=== PATIENT | male | born 1965 | race Caucasian/White ===

== ENCOUNTER 2016-10-17 05:30 | Inpatient (IN) | payer BC ==
[2016-10-14 17:55] VITALS: BMI 23.4
[2016-10-17] VITALS (20 sets, daily range): BP systolic 92–124; BP diastolic 55–82; PULSE 66–79; RESP 10–23; Ht 180.3 cm; Wt 75.3 kg
[~2016-10-17] VITALS: Ht 180.3 cm; Wt 75.3 kg
[~2016-10-17 05:30] MED LIST: CEFAZOLIN 2 GM/50 ML (PMX) 50 ML IVPB ONE; LEVOTHYROXIN
[2016-10-17] MEDS ORDERED: LEVO75TA5 PO (06:32)
[2016-10-17] MEDS ORDERED: PROP10TA6 PO (06:32)
[2016-10-17] MEDS ORDERED: ONDANSETRON 4 MG INJ ONE (06:34)
[2016-10-17] MEDS ORDERED: FENTAnyl 50 MCG/ML VIAL ONE (06:34)
[2016-10-17] MEDS ORDERED: PROPOFOL 20 ML ONE (06:34)
[2016-10-17] MEDS ORDERED: SUCCINYLCHOLINE CHLORIDE 100 MG/5 ML SYG IV ONE (06:34)
[2016-10-17] MEDS ORDERED: ROCURONIUM 50 MG INJ ONE (06:34)
[2016-10-17] MEDS ORDERED: GELATIN SIZE 100 SPONGE ONE (06:40)
[2016-10-17] MEDS ORDERED: BUPIVACAINE 0.25% (MPF) 10 ML 10 ML VIAL ONE (06:41)
[2016-10-17] MEDS ORDERED: THROMBIN 5000 UNIT VIAL ONE (06:41)
[2016-10-17] MEDS ORDERED: POLYMYXIN/BACITRACIN 1L IRRIG ONE (06:41)
[2016-10-17] MEDS ORDERED: CEFAZOLIN 1 GM INJ ONE ×2 (06:43→07:00)
[2016-10-17] MEDS ORDERED: HEPARIN 1000 UNITS/ML 10 ML INJ ONE (06:44)
--- NOTE | 2016-10-17 06:45 | HPN ---
Date/Time of Note Date/Time of Note DATE: 10/17/16 TIME: 06:45 Interval H&P Admission Note Pt. seen H&P reviewed: No system changes ELENITA PULIDO MD Oct 17, 2016 06:45
[2016-10-17] MEDS ORDERED: hydrALAzine 20 MG INJ IV PRN (08:00)
[2016-10-17] MEDS ORDERED: MEPERIDINE 25 MG INJ IV PRN (08:00)
[2016-10-17] MEDS ORDERED: LABETALOL HCL 20MG INJ IV PRN (08:00)
[2016-10-17] MEDS ORDERED: ONDANSETRON 4 MG INJ IV PRN (08:00)
[2016-10-17] MEDS ORDERED: FENTAnyl 50 MCG/ML VIAL IV PRN ×2 (08:00)
[2016-10-17] MEDS: LACTATED RINGER'S 1,000 ML IV* ONE ×2 (08:33→11:51)
[2016-10-17] MEDS ORDERED: THROMBIN(HUM PLAS)/FIBRINOG/CA 5 ML VIAL TOP ONE (09:20)
[2016-10-17] MEDS ORDERED: DIPHENHYDRAMINE 50 MG CAP PO PRN (12:00)
[2016-10-17] MEDS ORDERED: NACL 0.9% 3 ML SYG IV SCH (12:00)
[2016-10-17] MEDS ORDERED: CEPASTAT LOZENGE MT PRN (12:00)
[2016-10-17] MEDS ORDERED: ZOLPIDEM 5 MG TAB PO PRN (12:00)
[2016-10-17] MEDS ORDERED: ACETAMINOPHEN 325 MG TAB PO PRN (12:00)
[2016-10-17] MEDS ORDERED: NALOXONE (0.4 MG/ML) INJ IV PRN (12:00)
[2016-10-17] MEDS ORDERED: TRIMETHOBENZAMIDE 100 MG/ML VIAL IM PRN (12:00)
[2016-10-17] MEDS ORDERED: BETHANECHOL 25 MG TAB PO PRN (12:00)
[2016-10-17] MEDS ORDERED: AL HYDROX/MG HYDROX/SIMETH 30 ML CUP PO PRN (12:00)
[2016-10-17] MEDS ORDERED: PROCHLORPERAZINE 10 MG TAB PO PRN (12:00)
[2016-10-17] MEDS ORDERED: DIAZEPAM 5 MG/ML SYG IM PRN (12:00)
--- NOTE | 2016-10-17 12:04 | OPR ---
Date/Time of Note Date/Time of Note DATE: 10/17/16 TIME: 12:01 Operative Report Preoperative Diagnosis Status post decompressive laminectomy at L5 with postlaminectomy syndrome Postoperative Diagnosis Same Operation Performed Transforaminal lumbar interbody fusion L5-S1 Redo decompressive laminectomy at L5 Internal fixation from L5 to the sacrum with bilateral pedicle screws and rods Placement of interbody bone graft, peek cage, and bone morphogenic protein at L5 -S1 Revision of scar (10 cm) AP and lateral localizing fluoroscopic imaging Intraoperative nerve monitoring (4 hours) Surgeon: ELENITA PULIDO MD perioperative assistant: SHAWNA BARTON Anesthesia: general Anesthesiologist: VONDA VERGARA MD Estimated Blood Loss: other Specimens Disc L5-S1 Tubes/Drains 2 medium Hemovac drains employed Complications: None Pt Condition Post Procedure: stable Disposition: PACU Operative\Procedure Findings At surgery, degenerative disc disease at L5-S1 was confirmed. ELENITA PULIDO MD Oct 17, 2016 12:03
[2016-10-17] MEDS: HYDROmorphONE (0.2 MG/ML) 10ML SYG IV PRN ×5 (12:11→12:43)
[2016-10-17] MEDS ORDERED: HYDROmorphONE 0.2 MG/ML PCA ONE (12:16)
[2016-10-17] MEDS: morphine 1 MG/ML 30 ML (PCA) IV SCH ×2 (12:26→20:37)
[2016-10-17] MEDS: CEFAZOLIN 1 GM/50 ML (PMX) 50 ML IVPB SCH ×3 (12:35→23:54)
--- NOTE | 2016-10-17 13:03 | OPR ---
DATE OF OPERATION: 10/17/2016 PREOPERATIVE DIAGNOSIS: Status post decompressive laminectomy at L5 with post-laminectomy syndrome. POSTOPERATIVE DIAGNOSIS: Status post decompressive laminectomy at L5 with post-laminectomy syndrome . OPERATION PERFORMED: 1. Transforaminal lumbar interbody fusion at L5-S1. 2. Redo decompressive laminectomy at L5. 3. Internal fixation L5-S1 with Alphatec pedicle screws and rods. 4. Placement of interbody cage L5-S1 with local bone graft and the bone morphogenic protein. 5. Revision of scar (10 cm). 6. AP and lateral intraoperative fluoroscopy. 7. Intraoperative nerve monitoring (4 hours). SURGEON Suleman Samayoa MD PERCUSSION INSTRUMENT TUNER: Veena Philip PA-C ANESTHESIA: General endotracheal. ANESTHESIOLOGIST: Gomez Gallo MD ESTIMATED BLOOD LOSS: 350 mL, none replaced. DRAINS: Two medium Hemovac drains employed. COMPLICATIONS: None. PERTINENT HISTORY AND PHYSICAL: This is a 51-year-old male who had a previous lumbar decompression at L5 in 2004, but has had recurrent chronic pain in his back and lower extremities which have been unrelieved by extensive conservative management. He has undergone a number of diagnostic studies in cluding an MRI of the lumbar spine, which demonstrated post-surgical change at L5 and some degenerat estee disk changes at L5-S1. Treatment options were discussed with the patient, who elected to procee d with surgery. OPERATIVE FINDINGS AT SURGERY: Post-surgical changes at L5 were noted. The baseline intraoperative nerve monitoring revealed a decrease in the left L5 potential of 10%, the right L5 potential of 10% , the left S1 potential of 40%, and the right S1 potential of 50%. These all returned to normal at the completion of surgery. OPERATIVE PROCEDURE: With the patient in supine position after satisfactory induction of general en dotracheal anesthesia by Dr. Gallo, the patient was turned to the prone position onto the [facility] atop the fluoroscopic OSI table. All pressure points were carefully padded. Back was prepped a nd draped in usual sterile fashion. Athrombic pumps were applied to the legs below the knees to pre vent venous stasis during and after procedure. An indwelling Graff catheter was also placed preoper atively to facilitate bladder drainage during and after the procedure. A 10 cm incision then carried out midline using the previous lumbar scar for anatomic localization c entered over the L5 spinous process 10 cm in length, after the skin was infiltrated with 0.25% Chandra ine without epinephrine for postoperative analgesia. Superficial retractors were placed and hemosta sis secured with electrocautery. Throughout the procedure, copious amounts of antibacterial irrigat ing solution were used to periodically irrigate the wound. The fascia was incised in midline with a hot knife and a subperiosteal dissection carried out at L4 using a hot knife. Deep retractors were placed and deep hemostasis secured with electrocautery. Since the spinous process of L5 was essent ially gone, a Jorje clamp was placed on the spinous process of L4 and this was confirmed on the lat eral imaging. A dissection was then carried out distally from the L4 spinous process to expose the L5 facet joints bilaterally and the sacrum. The subtotal facetectomy was then carried out at L5-S1 bilaterally. T he operating microscope then moved into place. The S1 root on the left was mobilized medially and p rotected with Otf nerve retractor using microdissection technique. A 15 blade knife used to cu t a rectangular window in the annulus and posterior longitudinal ligament and multiple degenerative disk fragments were harvested with pituitary rongeurs and sent to laboratory for pathologic study. The 6, 7, 8, 9 Alphatec disk marcial were inserted into the L5-S1 disk to remove additional disk fra gments and the cartilaginous endplate. The straight and angled rasps were then used to facilitate a dditional cartilage removal at L5-S1. A 9 mm lordotic PEEK cage was then selected, and filled with an extra small piece of bone morphogenic protein that had been saturating for approximately 45 minut es prior to insertion. Multiple morselized bone fragments were placed into the anterior aspect of t he disk space prior to insertion of the PEEK cage with bone morphogenic protein. This would later b e sealed with Evicel to prevent leakage of the bone morphogenic protein into the canal. With this h aving been accomplished, the pedicles of L5 and S1 were identified and 2 Alphatec 40 mm long x 5.5 m m wide variable angle screws were placed into the L5 pedicles bilaterally using the fluoroscopic malia ging and the AP and lateral planes for guidance. A 6.5 x 35 mm screw was placed into the right S1 p edicle, and subsequently, a 6.5 mm wide x 30 mm long screw was placed into the left S1 sacral ala. Multiple attempts to place into the pedicle failed to yield electrical isolation. With final positi oning of the hardware, there was electrical isolation beyond 15 milliamps of current. The 45 mm lordotic rods were then used to connect the tulip heads at L5-S1 bilaterally, and the S1 s crews were tightened using the locking caps to factory specifications, using the torque wrench. Gabby or to final tightening of the L5 screws, the construct was put under compression. With the final chowdary rdware tightened, AP and lateral final images were taken which demonstrated satisfactory positioning of the hardware and the interbody spacer. The wound was then closed in layers over 2 medium Hemova c drains using the #1 Stratafix sutures in deep paralumbar musculature and deep fascia of back, 2-0 Stratafix sutures in subcu tissue, and a 4-0 Vicryl subcuticular cosmetic closing suture on the skin . Dermabond and sterile dressings were applied. Patient having tolerated procedure well, was then turned to supine position onto his bed and extubated by Dr. Gallo. He was [facility] room in satisfactory condition. At the conclusion of procedure, sponge, instrument, and needle counts were all correct. NEED FOR REPORT ANALYST: During this spinal surgical procedure, my administrative support assistant was used to retrac t and protect the spinal nerves and dural sac. My administrative support assistant also employed the suction catheters to e vacuate blood from the surgical field to improve visualization of the neural structures. The assista nt was medically necessary to facilitate the completion of the surgery in a safe and expeditious man ner. State of [place] regulations, as well as hospital bylaws, preclude the use of non-licensed [facility] care personnel such as operating room technicians, to perform these functions. Throughout the procedure, neural monitoring was carried out by [employer] including EMG, SSEP and MEP monitoring of the L3, L4, L5, and S1 nerve roots bilaterally along with spinal cord potentials. These were interpreted by neurologist employed by [employer]. Dictated By: SULEMAN SAMAYOA MD TM/NTS Conf#: [id number] DID#: [id number] CC: OMAYRA HOLT MD;*EndCC*
--- NOTE | 2016-10-17 13:06 | RADRPT ---
PROCEDURE: Intraoperative imaging of the lumbar spine with fluoroscopy. CLINICAL INDICATION: Back pain. Intraoperative. TECHNIQUE: 8 images of the lumbar spine were obtained in the operating room with an image intensif ier. No radiologist was in attendance. 26.8 seconds of fluoroscopy time was used. COMPARISON: No prior study is available for comparison. FINDINGS: For the purposes of this report, the last apparent true disc level is considered to be L5-S1. Based on this, posterior surgical instruments are present at L5 and S1. Final images demonstrate posteri or fusion with pedicle screws and connecting rods at L5-S1 and an intervertebral cage at L5-S1. IMPRESSION: 1. Intraoperative imaging of the lumbar spine. RPTAT: QQ .Harry Benton MD, MD Date Time Electronically viewed and signed by .Harry Benton MD, on 10/17/2016 13:06 .R/
--- NOTE | 2016-10-17 14:31 | CONS ---
DATE OF ADMISSION: 10/17/2016 DATE OF CONSULTATION: 10/17/2016 CONSULTATION: Postoperative evaluation. Dr. Samayoa: Thank you very much for allowing me to evaluate this 51-year-old male who underwent l umbar back surgery. HISTORICAL EVENTS: As you well know, this patient has had ongoing low back pain and following your evaluation and appropriate imaging elected to proceed with back surgery. Of note, was that he did u ndergo a laminectomy in 2004. In the recovery room he is comfortable, denies cough, wheezing, short ness of breath, nausea, vomiting, abdominal or chest pain. Underwent cardiology preoperative evaluation including a nuclear stress study that revealed no defin ite evidence of coronary insufficiency. PAST MEDICAL HISTORY: Includes: 1. Hypothyroidism. 2. Vitamin D deficiency. FAMILY HISTORY: Not reviewed. SOCIAL HISTORY: Does not drink or smoke. MEDICATIONS: 1. Ranitidine 300 mg per day. 2. Levothyroxine 50 mcg per day. 3. Vitamin D3, dose uncertain. PHYSICAL EXAMINATION: GENERAL: Comfortable appearing male in no acute distress. VITAL SIGNS: BP 110/80, pulse 70, respirations are 20, he was afebrile. EYES: Extraocular muscles were full. NOSE, MOUTH, AND THROAT: Normal. NECK: Supple. There was no jugular venous distention, thyroid enlargement or adenopathy. LUNGS: Clear. HEART: Rhythm regular, no murmur. No third or fourth sound. ABDOMEN: Nontender. Liver and spleen were not palpable. No masses or tenderness were noted. EXTREMITIES: No edema. Calves. Nontender. IMPRESSION: 1. Stable postop lumbar back surgery. 2. History of hypothyroidism. We will continue thyroid replacement. 3. We will evaluate daily for signs and symptoms of thromboembolic disease despite an appropriate D VT prophylaxis. Dictated By: VONDA CARTER MD MR/NTS Conf#: [id number] DID#: [id number]
[2016-10-17] MEDS: DEXTROSE 5%-0.45% NACL 1,000 ML IV SCH ×2 (14:58→21:56)
[2016-10-17] MEDS: ONDANSETRON 4 MG INJ IV PRN (17:33)
[2016-10-17] MEDS: RANITIDINE 150 MG TAB PO SCH (20:29)
[2016-10-17] MEDS: PROPRANOLOL 10 MG TAB PO SCH (20:38)
[2016-10-17] MEDS: DIAZEPAM 5 MG TAB PO PRN (23:58)
[2016-10-18 00:04] VITALS: BP 103/57; RESP 20
[2016-10-18 04:54] LABS: POTASSIUM 3.9 mmol/L (3.5-5.1)
[2016-10-18 04:57] LABS: CREATININE 0.99 mg/dl (0.61-1.24)
[2016-10-18] MEDS: CEFAZOLIN 1 GM/50 ML (PMX) 50 ML IVPB SCH (04:57)
[2016-10-18 04:58] LABS: CALCIUM 8.8 mg/dl (8.4-10.2)
[2016-10-18 05:00] LABS: HEMATOCRIT 31.7 % (42.0-52.0); HEMOGLOBIN 10.7 g/dl (14.0-18.0)
[2016-10-18] MEDS: LEVOTHYROXINE 125 MCG TAB PO SCH (06:26)
[2016-10-18 07:00] VITALS: BP 110/55; RESP 20
--- NOTE | 2016-10-18 07:10 | PN ---
Date/Time of Note Date/Time of Note DATE: 10/18/16 TIME: 07:08 Assessment/Plan Lines/Catheters IV Catheter Type (from Nrsg): Peripheral IV Graff in Place (from Nrsg): Yes Subjective 24 Hr Interval Summary Patient is postop day #1 following lumbar decompression/ fusion L5-S1. Pain is moderate overnight. Vital signs are stable. Hemoglobin this morning is 10.7 , Hemovac drain overnight was 90 cc and this will continue to be monitored. Neurovascular structures are intact distally. Plan for today is to progress ambulation with physical therapy, D/C Graff and [employer] Exam/Review of Systems Vital Signs Vitals Vital Signs Date Time Temp Pulse Resp B/P Pulse Ox O2 Delivery O2 Flow Rate FiO2 10/18/16 05:00 18 10/18/16 00:04 99.0 82 103/57 99 10/17/16 20:25 Nasal Cannula 1.0 Intake and Output 10/17/16 10/17/16 10/18/16 15:00 23:00 07:00 Intake Total 1800 ml 500 ml 1640 ml Output Total 510 ml 600 ml 1690 ml Balance 1290 ml -100 ml -50 ml Results Result Diagram: 10/18/16 0415 10/18/16 0415 SHAWNA BARTON Oct 18, 2016 07:10
[2016-10-18] MEDS: DEXTROSE 5%-0.45% NACL 1,000 ML IV SCH ×3 (07:56→17:46)
[2016-10-18] MEDS ORDERED: BETHANECHOL 25 MG TAB PO PRN (08:00)
[2016-10-18] MEDS: PROPRANOLOL 10 MG TAB PO SCH ×3 (08:33→22:00)
[2016-10-18] MEDS: RANITIDINE 150 MG TAB PO SCH ×2 (08:37→22:00)
[2016-10-18] MEDS: DOCUSATE SODIUM 100 MG CAP PO SCH ×2 (08:37→22:00)
[2016-10-18] MEDS: ASCORBIC ACID 500 MG TAB PO SCH ×2 (08:38→21:59)
[2016-10-18] MEDS: FERROUS SULFATE (EC) 325 MG TAB PO SCH ×3 (08:38→22:00)
--- NOTE | 2016-10-18 08:39 | CONS ---
Date/Time of Note Date/Time of Note DATE: 10/18/16 TIME: 08:37 Assessment/Plan Assessment/Plan Additional Assessment/Plan 1. Stable post op lumbar laminectomy 2. Hypothyroidism on replacement 3. Labs rev Consultation Date/Type/Reason Admit Date/Time Oct 17, 2016 at 05:30 Initial Consult Date Detailed Summary Respiratory: No cough, No shortness of breath Cardiovascular: No chest pain Gastrointestinal: no complaints Genitourinary: other (milkd-mod urethral discomfort) Musculoskeletal: back pain (mod when attempting to move) Exam/Review of Systems Vital Signs Vitals Vital Signs Date Time Temp Pulse Resp B/P Pulse Ox O2 Delivery O2 Flow Rate FiO2 10/18/16 07:00 99.8 95 20 110/55 98 10/17/16 20:25 Nasal Cannula 1.0 Intake and Output 10/17/16 10/17/16 10/18/16 15:00 23:00 07:00 Intake Total 1800 ml 500 ml 1640 ml Output Total 510 ml 600 ml 1690 ml Balance 1290 ml -100 ml -50 ml Exam Neck: No jvd Respiratory: clear to auscultation Cardiovascular: regular rate and rhythm Gastrointestinal: soft Extremities: No edema (and no calf tend) Results Result Diagram: 10/18/16 0415 10/18/16 0415 Results 24 hrs Laboratory Tests Test 10/18/16 04:15 Hemoglobin 10.7 L Hematocrit 31.7 L Sodium Level 137 Potassium Level 3.9 Chloride Level 99 Carbon Dioxide Level 28 Anion Gap 14 Blood Urea Nitrogen 12 Creatinine 0.99 Glucose Level 119 Calcium Level 8.8 Medications Medications Current Medications Dextrose/Sodium Chloride (D5-1/2ns) 1,000 ml @ 100 mls/hr Q10H IV Last administered on 10/18/16t 00:00; Admin Dose 100 MLS/HR; Start 10/17/16 at 11:56 Acetaminophen/ Hydrocodone Bitart ([place] (5/325)) 1 tab Q4H PRN PO PAIN LEVEL 1 -5; Start 10/17/16 at 12:00; Status Future Hold Acetaminophen/ Hydrocodone Bitart ([place] (5/325)) 2 tab Q4H PRN PO PAIN LEVEL 6 -10; Start 10/17/16 at 12:00; Status Future Hold Zolpidem Tartrate (Ambien) 5 mg HS PRN PO INSOMNIA; Start 10/17/16 at 12:00 Prochlorperazine (Compazine) 10 mg Q4H PRN PO NAUSEA AND/OR VOMITING; Start at 12:00 Trimethobenzamide HCl (Tigan) 200 mg Q4H PRN IM NAUSEA AND/OR VOMITING; Start 10/17/16 at 12:00 Ondansetron HCl (Zofran Inj) 4 mg Q6H PRN IV NAUSEA AND/OR VOMITING Last administered on 10/17/16 17:33; Admin Dose 4 MG; Start 10/17/16 at 12:00 Al Hydrox/Mg Hydrox/Simethicone (Mag-Al Plus) 15 ml Q4H PRN PO CONSTIPATION; Start 10/17/16 at 12:00 Docusate Sodium (Colace) 100 mg BID PO ; Start 10/18/16 at 09:00 Acetaminophen (Tylenol Tab) 650 mg Q4H PRN PO TEMP GREATER THAN 101F OR HORTON Last administered on 10/18/16 06:25; Admin Dose 650 MG; Start 10/17/16 at 12:00 Ascorbic Acid (Vitamin C) 1,000 mg BID PO ; Start 10/18/16 at 09:00 Ferrous Sulfate (Ferrous Sulfate (Ec)) 325 mg TID PO ; Start 10/18/16 at 09:00 Ranitidine HCl (Zantac) 150 mg BID PO Last administered on 10/17/16 20:29; Admin Dose 150 MG; Start 10/17/16 at 21:00 Diazepam (Valium) 5 mg Q4H PRN PO MUSCLE SPASMS Last administered on 10/17/16 23:58; Admin Dose 5 MG; Start 10/17/16 at 12:00 Diazepam (Valium) 5 mg Q4H PRN IM MUSCLE SPASMS Last administered on 10/18/16 04:30; Admin Dose 5 MG; Start 10/17/16 at 12:00 Phenol (Cepastat Lozenge) 1 lozenge PRN PRN MT SORE THROAT Last administered on 10/18/16 00:02; Admin Dose 1 LOZENGE; Start 10/17/16 at 12:00 Bethanechol Chloride (Urecholine) 25 mg PRN PRN PO UNABLE TO VOID; Start at 12:00 Diphenhydramine HCl (Benadryl) 50 mg Q6H PRN PO PRURITUS; Start 10/17/16 at 12: 00 Morphine Sulfate (morphine) Q4PCA IV Last administered on 10/17/16t 20:37; Admin Dose 30 MG; Start 10/17/16 at 12:00 Naloxone HCl (Narcan) 0.2 mg Q2M PRN IV RR 8 BREATHS/MIN OR LESS; Start at 12:00 Propranolol HCl (Inderal) 10 mg TID PO ; Start 10/17/16 at 21:00 Bethanechol Chloride (Urecholine) 25 mg PRN PRN PO UNABLE TO VOID; Start at 08:00 VONDA CARTER MD Oct 18, 2016 08:39
[2016-10-18] MEDS: ONDANSETRON 4 MG INJ IV PRN (10:22)
[2016-10-18] MEDS: HYDROCODONE/APAP (5/325) TAB PO PRN ×2 (10:23→19:12)
[2016-10-18 12:35] LABS: ADD UMIC YES; URINE BILIRUBIN (Dip) NEGATIVE (NEGATIVE); URINE BLOOD (Dip) 2+ (NEGATIVE); URINE COLOR LT. YELLOW (YELLOW); URINE GLUCOSE (Dip) NEGATIVE (NEGATIVE); URINE KETONES (Dip) NEGATIVE (NEGATIVE); URINE LEUKOCYTE ESTERASE (Dip) TRACE (NEGATIVE); URINE NITRITE (Dip) NEGATIVE (NEGATIVE); URINE TOTAL PROTEIN (Dip) NEGATIVE (NEGATIVE); URINE UROBILINOGEN (Dip) 0.2 E.U./dL (0.1-1.0)
[2016-10-18 12:59] LABS: BACTERIA,URINE FEW
[2016-10-18] MEDS: DIAZEPAM 5 MG TAB PO PRN (14:19)
[2016-10-18 19:20] VITALS: BP 124/73; RESP 18
[2016-10-19] MEDS: HYDROCODONE/APAP (5/325) TAB PO PRN ×4 (02:11→19:43)
[2016-10-19] MEDS: DEXTROSE 5%-0.45% NACL 1,000 ML IV SCH ×3 (03:56→23:56)
[2016-10-19] MEDS: LEVOTHYROXINE 125 MCG TAB PO SCH (05:58)
--- NOTE | 2016-10-19 06:55 | PN ---
Date/Time of Note Date/Time of Note DATE: 10/19/16 TIME: 06:54 Assessment/Plan Lines/Catheters IV Catheter Type (from Nrsg): Peripheral IV Graff in Place (from Nrsg): Yes Subjective 24 Hr Interval Summary The patient is postop day #2 following a transforaminal lumbar interbody fusion at L5-S1. He is resting comfortably. Neurovascular structures were intact distally. His Hemovac had minimal drainage and was discontinued. His wound is clean and dry and was redressed. He made very little progress with physical therapy and has not ambulated outside of his room thus far. Physical therapy will continue working with him until he is independent. He had a low-grade temperature last night (100.2). Exam/Review of Systems Vital Signs Vitals Vital Signs Date Time Temp Pulse Resp B/P Pulse Ox O2 Delivery O2 Flow Rate FiO2 10/18/16 19:20 100.2 98 18 124/73 95 10/17/16 20:25 Nasal Cannula 1.0 Intake and Output 10/18/16 10/18/16 10/19/16 15:00 23:00 07:00 Intake Total 500 ml 1060 ml 1200 ml Output Total 1140 ml 1375 ml Balance 500 ml -80 ml -175 ml Results Result Diagram: 10/18/16 0415 10/18/16 0415 ELENITA PULIDO MD Oct 19, 2016 06:55
[2016-10-19 07:51] VITALS: BP 109/73; RESP 18
[2016-10-19] MEDS: FERROUS SULFATE (EC) 325 MG TAB PO SCH ×3 (08:58→20:11)
[2016-10-19] MEDS: ASCORBIC ACID 500 MG TAB PO SCH ×2 (08:58→20:11)
[2016-10-19] MEDS: RANITIDINE 150 MG TAB PO SCH ×2 (08:58→20:11)
[2016-10-19] MEDS: PROPRANOLOL 10 MG TAB PO SCH ×3 (08:58→20:12)
[2016-10-19] MEDS: DOCUSATE SODIUM 100 MG CAP PO SCH ×2 (08:58→20:11)
--- NOTE | 2016-10-19 11:47 | CONS ---
Date/Time of Note Date/Time of Note DATE: 10/19/16 TIME: 11:40 Assessment/Plan Assessment/Plan Chief Complaint/Hosp Course 1.He is 2 days post op a lumbar spine surgery 2. He has a headache . 3. continue current medication and PT . Problems: Consultation Date/Type/Reason Admit Date/Time Oct 17, 2016 at 05:30 Initial Consult Date 24 HR Interval Summary Free Text/Dictation He is 2 days post op a lumbar spine surgery . He has a headache . Exam/Review of Systems Vital Signs Vitals Vital Signs Date Time Temp Pulse Resp B/P Pulse Ox O2 Delivery O2 Flow Rate FiO2 10/19/16 07:51 98.2 72 18 109/73 98 10/17/16 20:25 Nasal Cannula 1.0 Intake and Output 10/18/16 10/18/16 10/19/16 15:00 23:00 07:00 Intake Total 500 ml 1060 ml 1200 ml Output Total 1140 ml 1375 ml Balance 500 ml -80 ml -175 ml Exam Constitutional: alert, oriented, well developed Neck: non-tender, supple Respiratory: clear to auscultation, normal air movement Cardiovascular: regular rate and rhythm Results Result Diagram: 10/18/16 0415 10/18/16 0415 Medications Medications Current Medications Dextrose/Sodium Chloride (D5-1/2ns) 1,000 ml @ 100 mls/hr Q10H IV Last administered on 10/18/16 00:00; Admin Dose 100 MLS/HR; Start 10/17/16 at 11:56 Acetaminophen/ Hydrocodone Bitart ([place] (5/325)) 1 tab Q4H PRN PO PAIN LEVEL 1 -5 Last administered on 10/19/16 09:35; Admin Dose 1 TAB; Start 10/17/16 at 12: 00; Status Future hold Acetaminophen/ Hydrocodone Bitart ([place] (5/325)) 2 tab Q4H PRN PO PAIN LEVEL 6 -10 Last administered on 10/19/16 02:11; Admin Dose 2 TAB; Start 10/17/16 at 12 :00; Status Future hold Zolpidem Tartrate (Ambien) 5 mg HS PRN PO INSOMNIA; Start 10/17/16 at 12:00 Prochlorperazine (Compazine) 10 mg Q4H PRN PO NAUSEA AND/OR VOMITING; Start at 12:00 Trimethobenzamide HCl (Tigan) 200 mg Q4H PRN IM NAUSEA AND/OR VOMITING; Start 10/17/16 at 12:00 Ondansetron HCl (Zofran Inj) 4 mg Q6H PRN IV NAUSEA AND/OR VOMITING Last administered on 10/18/16 10:22; Admin Dose 4 MG; Start 10/17/16 at 12:00 Al Hydrox/Mg Hydrox/Simethicone (Mag-Al Plus) 15 ml Q4H PRN PO CONSTIPATION; Start 10/17/16 at 12:00 Docusate Sodium (Colace) 100 mg BID PO Last administered on 10/19/16 08:58; Admin Dose 100 MG; Start 10/18/16 at 09:00 Acetaminophen (Tylenol Tab) 650 mg Q4H PRN PO TEMP GREATER THAN 101F OR HORTON Last administered on 10/18/16 06:25; Admin Dose 650 MG; Start 10/17/16 at 12:00 Ascorbic Acid (Vitamin C) 1,000 mg BID PO Last administered on 10/19/16 08:58 ; Admin Dose 1,000 MG; Start 10/18/16 at 09:00 Ferrous Sulfate (Ferrous Sulfate (Ec)) 325 mg TID PO Last administered on 08:58; Admin Dose 325 MG; Start 10/18/16 at 09:00 Ranitidine HCl (Zantac) 150 mg BID PO Last administered on 10/19/16 08:58; Admin Dose 150 MG; Start 10/17/16 at 21:00 Diazepam (Valium) 5 mg Q4H PRN PO MUSCLE SPASMS Last administered on 10/18/16 14:19; Admin Dose 5 MG; Start 10/17/16 at 12:00 Diazepam (Valium) 5 mg Q4H PRN IM MUSCLE SPASMS Last administered on 10/18/16 04:30; Admin Dose 5 MG; Start 10/17/16 at 12:00 Phenol (Cepastat Lozenge) 1 lozenge PRN PRN MT SORE THROAT Last administered on 10/18/16 00:02; Admin Dose 1 LOZENGE; Start 10/17/16 at 12:00 Diphenhydramine HCl (Benadryl) 50 mg Q6H PRN PO PRURITUS; Start 10/17/16 at 12: 00 Morphine Sulfate (morphine) Q4PCA IV Last administered on 10/17/16 20:37; Admin Dose 30 MG; Start 10/17/16 at 12:00 Naloxone HCl (Narcan) 0.2 mg Q2M PRN IV RR 8 BREATHS/MIN OR LESS; Start at 12:00 Propranolol HCl (Inderal) 10 mg TID PO Last administered on 10/18/16 22:00; Admin Dose 10 MG; Start 10/17/16 at 21:00 Bethanechol Chloride (Urecholine) 25 mg PRN PRN PO UNABLE TO VOID; Start at 08:00 OMAYRA HOLT MD Oct 19, 2016 11:47
[2016-10-19 12:10] VITALS: BP 110/67; RESP 16
[2016-10-19 17:50] VITALS: BP 122/71; RESP 16
[2016-10-19 19:32] VITALS: BP 116/69; RESP 18
[2016-10-19] MEDS: DIAZEPAM 5 MG TAB PO PRN (22:34)
[2016-10-20] MEDS: HYDROCODONE/APAP (5/325) TAB PO PRN ×2 (03:59→08:52)
[2016-10-20] MEDS: LEVOTHYROXINE 125 MCG TAB PO SCH (06:05)
--- NOTE | 2016-10-20 07:11 | PN ---
Date/Time of Note Date/Time of Note DATE: 10/20/16 TIME: 07:09 Assessment/Plan Lines/Catheters IV Catheter Type (from Nrsg): Saline Lock Graff in Place (from Nrsg): No Subjective 24 Hr Interval Summary Patient is postop day #3 following a lumbar fusion at L5-S1. He is resting comfortably in bed. He did not ambulate outside of his room yesterday because of dizziness. I had him up in a chair last night, and he did not have any dizziness. Neurovascular structures are intact distally. He will be ambulated with physical therapy today and hopefully discharge this afternoon if cleared. Strict discharge precautions and instructions were given. We will see him in the office in 1-2 weeks. Exam/Review of Systems Vital Signs Vitals Vital Signs Date Time Temp Pulse Resp B/P Pulse Ox O2 Delivery O2 Flow Rate FiO2 10/19/16 19:32 98.5 86 18 116/69 97 10/17/16 20:25 Nasal Cannula 1.0 Intake and Output 10/19/16 10/19/16 10/20/16 15:00 23:00 07:00 Intake Total 820 ml 800 ml Output Total 950 ml 750 ml Balance -130 ml 50 ml Results Result Diagram: 10/18/16 0415 10/18/16 0415 ELENITA PULIDO MD Oct 20, 2016 07:11
[2016-10-20] MEDS: FERROUS SULFATE (EC) 325 MG TAB PO SCH ×2 (08:50→12:44)
[2016-10-20] MEDS: DOCUSATE SODIUM 100 MG CAP PO SCH (08:50)
[2016-10-20] MEDS: RANITIDINE 150 MG TAB PO SCH (08:50)
[2016-10-20] MEDS: ASCORBIC ACID 500 MG TAB PO SCH (08:51)
[2016-10-20] MEDS: DIAZEPAM 5 MG TAB PO PRN (08:52)
[2016-10-20] MEDS: PROPRANOLOL 10 MG TAB PO SCH ×2 (08:56→12:45)
[2016-10-20 09:03] VITALS: BP 117/74; RESP 16
[2016-10-20] MEDS: DEXTROSE 5%-0.45% NACL 1,000 ML IV SCH (09:56)
--- NOTE | 2016-10-20 11:21 | CONS ---
Date/Time of Note Date/Time of Note DATE: 10/20/16 TIME: :17 Assessment/Plan Assessment/Plan Chief Complaint/Hosp Course 1.He is 3 days post op a lumbar spine surgery, 2. His headache has resolved. 3. continue current medication and PT . 4. He is doing well from my standpoint. He can be discharged to home today. Problems: Consultation Date/Type/Reason Admit Date/Time Oct 17, 2016 at 05:30 24 HR Interval Summary Free Text/Dictation He is feeling better today. His headache has resolved. Constitutional: no complaints Exam/Review of Systems Vital Signs Vitals Vital Signs Date Time Temp Pulse Resp B/P Pulse Ox O2 Delivery O2 Flow Rate FiO2 10/20/16 09:03 98.1 16 117/74 97 10/19/16 19:32 86 10/17/16 20:25 Nasal Cannula 1.0 Intake and Output 10/19/16 10/19/16 10/20/16 15:00 23:00 07:00 Intake Total 820 ml 800 ml Output Total 950 ml 750 ml Balance -130 ml 50 ml Exam Constitutional: alert, oriented, well developed Respiratory: clear to auscultation, normal air movement Cardiovascular: regular rate and rhythm Gastrointestinal: soft Musculoskeletal: nl extremities to inspection Results Result Diagram: 10/18/16 0415 10/18/16 0415 Medications Medications Current Medications Dextrose/Sodium Chloride (D5-1/2ns) 1,000 ml @ 100 mls/hr Q10H IV Last administered on 10/18/16 00:00; Admin Dose 100 MLS/HR; Start 10/17/16 at 11:56 Acetaminophen/ Hydrocodone Bitart ([place] (5/325)) 1 tab Q4H PRN PO PAIN LEVEL 1 -5 Last administered on 10/20/16 03:59; Admin Dose 1 TAB; Start 10/17/16 at 12: 00; Status Future hold Acetaminophen/ Hydrocodone Bitart ([place]son (5/325)) 2 tab Q4H PRN PO PAIN LEVEL 6 -10 Last administered on 10/20/16 08:52; Admin Dose 2 TAB; Start 10/17/16 at 12 :00; Status Future hold Zolpidem Tartrate (Ambien) 5 mg HS PRN PO INSOMNIA; Start 10/17/16 at 12:00 Prochlorperazine (Compazine) 10 mg Q4H PRN PO NAUSEA AND/OR VOMITING; Start at 12:00 Trimethobenzamide HCl (Tigan) 200 mg Q4H PRN IM NAUSEA AND/OR VOMITING; Start 10/17/16 at 12:00 Ondansetron HCl (Zofran Inj) 4 mg Q6H PRN IV NAUSEA AND/OR VOMITING Last administered on 10/18/16 10:22; Admin Dose 4 MG; Start 10/17/16 at 12:00 Al Hydrox/Mg Hydrox/Simethicone (Mag-Al Plus) 15 ml Q4H PRN PO CONSTIPATION; Start 10/17/16 at 12:00 Docusate Sodium (Colace) 100 mg BID PO Last administered on 10/20/16 08:50; Admin Dose 100 MG; Start 10/18/16 at 09:00 Acetaminophen (Tylenol Tab) 650 mg Q4H PRN PO TEMP GREATER THAN 101F OR HORTON Last administered on 10/18/16 06:25; Admin Dose 650 MG; Start 10/17/16 at 12:00 Ascorbic Acid (Vitamin C) 1,000 mg BID PO Last administered on 10/20/16 08:51 ; Admin Dose 1,000 MG; Start 10/18/16 at 09:00 Ferrous Sulfate (Ferrous Sulfate (Ec)) 325 mg TID PO Last administered on 08:50; Admin Dose 325 MG; Start 10/18/16 at 09:00 Ranitidine HCl (Zantac) 150 mg BID PO Last administered on 10/20/16 08:50; Admin Dose 150 MG; Start 10/17/16 at 21:00 Diazepam (Valium) 5 mg Q4H PRN PO MUSCLE SPASMS Last administered on 10/20/16 08:52; Admin Dose 5 MG; Start 10/17/16 at 12:00 Diazepam (Valium) 5 mg Q4H PRN IM MUSCLE SPASMS Last administered on 10/18/16 04:30; Admin Dose 5 MG; Start 10/17/16 at 12:00 Phenol (Cepastat Lozenge) 1 lozenge PRN PRN MT SORE THROAT Last administered on 10/18/16 00:02; Admin Dose 1 LOZENGE; Start 10/17/16 at 12:00 Diphenhydramine HCl (Benadryl) 50 mg Q6H PRN PO PRURITUS; Start 10/17/16 at 12: 00 Morphine Sulfate (morphine) Q4PCA IV Last administered on 10/17/16 20:37; Admin Dose 30 MG; Start 10/17/16 at 12:00 Naloxone HCl (Narcan) 0.2 mg Q2M PRN IV RR 8 BREATHS/MIN OR LESS; Start at 12:00 Propranolol HCl (Inderal) 10 mg TID PO Last administered on 10/20/16 08:56; Admin Dose 10 MG; Start 10/17/16 at 21:00 Bethanechol Chloride (Urecholine) 25 mg PRN PRN PO UNABLE TO VOID; Start at 08:00 OMAYRA HOLT MD Oct 20, 2016 11:21
--- NOTE | 2016-10-20 11:22 | PDOCDIS ---
Discharge Instructions CONDITION Patient Condition: Good HOME CARE INSTRUCTIONS: Diet Instructions: RegularSpecial Diet: N/A ACTIVITY: Activity Restrictions: Rest between Activity Avoid heavy lifting Do not Drive Do not operate Machinery Do not operate Power Tool Avoid Heavy Housework Bathing Restrictions: Shower FOLLOW UP/APPOINTMENTS Appointments OMAYRA Freitas MD Oct 20, 2016 11:22
[2016-10-20 12:45] VITALS: BP 105/67; PULSE 70
== END 2016-10-20 15:05 | disposition home or self-care (01) | DRG 460 ==
LOC: REC 05:30 → MS1 13:25
PROVIDERS: ADMIT Orthopaedic Surgery; ATTEND Orthopaedic Surgery
PROC: 0SB40ZZ Excision of Lumbosacral Disc, Open Approach (ICD-10-PCS; 2016-10-17)
PROC: 3E0U0GB Introduction of Recombinant Bone Morphogenetic Protein into Joints, Open Approach (ICD-10-PCS; 2016-10-17)
PROC: 0SG30AJ Fusion of Lumbosacral Joint with Interbody Fusion Device, Posterior Approach, Anterior Column, Open Approach (ICD-10-PCS; principal; 2016-10-17 07:00)
DX: M96.1 Postlaminectomy syndrome, not elsewhere classified (principal); E03.9 Hypothyroidism, unspecified; M51.37 Other intervertebral disc degeneration, lumbosacral region; R51 Headache; R42 Dizziness and giddiness
CPT/HCPCS: 72114; 80048; 81001; 81003; 85014; 85018; 86850; 86900; 86901; 86920; 87086; 88304; 97116; 97163; 97530; C1713; C9250; J0330; J0690; J1170; J1644; J2270; J2405; J3010; J3360; J7042; J7120; L8699

== ENCOUNTER 2019-03-15 07:53 | Day surgery (SDC) | payer BC ==
[2019-03-15] VITALS (11 sets, daily range): BP systolic 102–125; BP diastolic 44–82; PULSE 54–60; RESP 17–20; Ht 180.3 cm; Wt 73.5 kg
[~2019-03-15] VITALS: Ht 180.3 cm; Wt 73.5 kg
[~2019-03-15 07:53] MED LIST changes: -CEFAZOLIN 2 GM/50 ML (PMX) 50 ML IVPB ONE; +DICLOFENAC; -LEVOTHYROXIN; +LEVOTHYROXINE; +PROPANOLOL; +RANITIDINE
[2019-03-15] MEDS ORDERED: LIDOCAINE 2% (SDV) 5 ML INJ ONE (09:28)
[2019-03-15] MEDS ORDERED: PROPOFOL 40 ML ONE (09:28)
[2019-03-15] MEDS ORDERED: ONDANSETRON 4 MG INJ IV PRN (09:30)
[2019-03-15] MEDS ORDERED: MIDAZOLAM 1 MG/ML 2 ML INJ IV PRN (09:30)
[2019-03-15] MEDS ORDERED: LABETALOL HCL 20MG INJ IV PRN (09:30)
== END 2019-03-15 14:04 | disposition home or self-care (01) ==
LOC: GIL 07:53
PROVIDERS: ATTEND Internal Medicine Gastroenterology
DX: Z12.11 Encounter for screening for malignant neoplasm of colon (principal); D12.5 Benign neoplasm of sigmoid colon; D12.3 Benign neoplasm of transverse colon; D12.8 Benign neoplasm of rectum; E03.9 Hypothyroidism, unspecified
CPT/HCPCS: 45385; 88305; Z7610